=== PATIENT | male | born 1995 | race Hispanic/Latino ===

== ENCOUNTER 2019-08-05 13:35 | Emergency (ER) | payer BC ==
[~2019-08-05] VITALS: Ht 162.6 cm; Wt 67.3 kg
[2019-08-05 15:00] LABS: HEMATOCRIT 50.6 % (39.0-50.0); HEMOGLOBIN 17.4 g/dl (14.0-18.0); IMMATURE GRANULOCYTES 0.6 % (0.0-5.0); MEAN CELL VOLUME 89.9 fL CALC (80.0-100.0); MEAN CORPUSCULAR HGB 30.9 pG CALC (26.0-32.0); MEAN CORPUSCULAR HGB CONC 34.4 g/L CALC (32.0-36.0); NEUT# 16.2 thou/uL (1.82-7.42); RED BLOOD COUNT 5.63 mill/uL (4.70-6.10)
[2019-08-05 15:12] LABS: ALBUMIN 5.7 g/dL (3.2-5.0); ALKALINE PHOSPHATASE 103 u/l (38-126); ANION GAP 21 (6-22 (CALC)); BUN 20 mg/dL (9-20); BUN/CREATININE RATIO 21 (12-20 (CALC)); CARBON DIOXIDE 22 mmol/l (22-30); CHLORIDE 102 mmol/l (95-108); GFR > 60 ML/MIN (>=60 (CALC)); GFR FOR AFR.AMER. > 60 ML/MIN (>=60 (CALC)); LIPASE 59 u/l (23-300); SGOT/AST 40 u/l (17-59); SODIUM 140 mmol/l (137-146); TOTAL PROTEIN 9.4 g/dL (6.3-8.2)
[2019-08-05 15:13] LABS: POTASSIUM 5.2 mmol/l (3.5-5.1)
[2019-08-05 15:53] LABS: URINE BLOOD DIPSTICK NEGATIVE (NEGATIVE); URINE COLOR YELLOW; URINE GLUCOSE - DIPSTICK NEGATIVE (NEGATIVE); URINE KETONE 40 mg/dL (NEGATIVE); URINE LEUK ESTERASE NEGATIVE (NEGATIVE); URINE NITRITE - DIPSTICK NEGATIVE (Negative); URINE PROTEIN - DIPSTICK NEGATIVE (NEG-TRACE); URINE SPECIFIC GRAVITY 1.015; URINE UROBILINOGEN - DIPSTICK 0.2 E.U./dL (0.2)
[2019-08-05 15:55] LABS: URINE BILIRUBIN - DIPSTICK SMALL (NEGATIVE)
[2019-08-05] MEDS ORDERED: ZOFRAN4 MG/TAB PO (17:19)
[2019-08-05 17:45] VITALS: BP 120/60
== END 2019-08-05 17:45 | disposition home or self-care (01) | DRG 392 ==
LOC: ED 13:35
DX: K52.9 Noninfective gastroenteritis and colitis, unspecified (principal)
CPT/HCPCS: Q9967